=== PATIENT | male | born 1955 | race American Indian/Alaskan Native ===

== ENCOUNTER 2017-02-02 14:25 | Emergency (ER) | payer MEDICARE, OTHER ==
[2017-02-02 14:56] VITALS: BP 149/85
[2017-02-02 15:35] LABS: Hematocrit 46.2 % (35.5-45.6); Hemoglobin 15.2 gm/dl (11.8-15.2); Mean Corpuscular HGB Conc 33 % (32-34); Mean Corpuscular Hemoglobin 29 pg (28-32); Mean Corpuscular Volume 89 fl (84-94); Platelet Count 206 K/mm3 (140-440); Red Blood Count 5.22 M/mm3 (3.65-5.03); Red Cell Distribution Width 13.7 % (13.2-15.2)
[2017-02-02 15:37] LABS: White Blood Count 25.6 K/mm3 (4.5-11.0)
[2017-02-02 15:46] LABS: Anion Gap 21 mmol/L; Blood Urea Nitrogen 10 mg/dL (9-20); Carbon Dioxide 20 mmol/L (22-30); Chloride 93.1 mmol/L (98-107); Glucose 112 mg/dL (75-100); Potassium 3.6 mmol/L (3.6-5.0); Sodium 130 mmol/L (137-145)
[2017-02-02 16:17] LABS: Basophils % (Manual) 0 % (0.0-1.8); Blastocytes % (Manual) 0 %; Eosinophils % (Manual) 0 % (0.0-4.3)
[2017-02-02 16:18] LABS: Anisocytosis Few; Poikilocytosis Few
[2017-02-02 16:19] LABS: Diff Status Complete
[2017-02-02 17:45] LABS: Bacteria,Urine 1+ /HPF (Negative); Bilirubin,Urine NEG (Negative); Blood,Urine LG (Negative); Ketones,Urine TR mg/dL (Negative); Leukocyte Esterase,Urine MOD (Negative); Mucus,Urine 1+ /HPF; Nitrite,Urine POS (Negative); Urobilinogen,Urine < 2.0 mg/dL (<2.0)
[2017-02-02 17:48] LABS: Protein,Urine >500 mg/dL (Negative)
[2017-02-02] MEDS ORDERED: TYLENOL ONE (17:57)
--- NOTE | 2017-02-06 15:41 | ED Elopement Review ---
ED Pt Elopement review - Results review Lab results: Laboratory Tests 02/02/17 02/02/17 02/02/17 15:15 15:15 17:23 WBC 25.6 H RBC 5.22 H Hgb 15.2 Hct 46.2 H MCV 89 MCH 29 MCHC 33 RDW 13.7 Plt Count 206 Add Manual Diff Complete Total Counted 200 Seg Neuts % (Manual) 87.5 H Band Neutrophils % 0 Lymphocytes % (Manual) 2.5 L Reactive Lymphs % (Man) 0 Monocytes % (Manual) 10.0 H Eosinophils % (Manual) 0 Basophils % (Manual) 0 Metamyelocytes % 0 Myelocytes % 0 Promyelocytes % 0 Blast Cells % 0 Nucleated RBC % Not Reportable Seg Neutrophils # Man 22.4 H Band Neutrophils # 0.0 Lymphocytes # (Manual) 0.6 L Abs React Lymphs (Man) 0.0 Monocytes # (Manual) 2.6 H Eosinophils # (Manual) 0.0 Basophils # (Manual) 0.0 Metamyelocytes # 0.0 Myelocytes # 0.0 Promyelocytes # 0.0 Blast Cells # 0.0 WBC Morphology Not Reportable Hypersegmented Neuts Not Reportable Hyposegmented Neuts Not Reportable Hypogranular Neuts Not Reportable Smudge Cells Not Reportable Toxic Granulation Not Reportable Toxic Vacuolation Not Reportable Dohle Bodies Not Reportable Pelger-Huet Anomaly Not Reportable Shahbaz Rods Not Reportable Platelet Estimate Appears normal Clumped Platelets Not Reportable Plt Clumps, EDTA Not Reportable Large Platelets Not Reportable Giant Platelets Not Reportable Platelet Satelliting Not Reportable Plt Morphology Comment Not Reportable RBC Morphology Not Reportable Dimorphic RBCs Not Reportable Polychromasia Not Reportable Hypochromasia Not Reportable Poikilocytosis Few Anisocytosis Few Microcytosis Not Reportable Macrocytosis Not Reportable Spherocytes Not Reportable Pappenheimer Bodies Not Reportable Sickle Cells Not Reportable Target Cells Not Reportable Tear Drop Cells Not Reportable Ovalocytes Not Reportable Helmet Cells Not Reportable Ferrell-Fajardo Bodies Not Reportable Keller Rings Not Reportable Komal Cells Not Reportable Bite Cells Not Reportable Crenated Cell Not Reportable Elliptocytes Not Reportable Acanthocytes (Spur) Not Reportable Rouleaux Not Reportable Hemoglobin C Crystals Not Reportable Schistocytes Not Reportable Malaria parasites Not Reportable Lopez Bodies Not Reportable Hem Pathologist Commnt No Sodium 130 L Potassium 3.6 Chloride 93.1 L Carbon Dioxide 20 L Anion Gap 21 BUN 10 Creatinine 0.8 Estimated GFR > 60 BUN/Creatinine Ratio 12.50 Glucose 112 H Calcium 9.0 Troponin T < 0.010 Urine Color Yellow Urine Turbidity Slightly-cloudy Urine pH 5.0 Ur Specific Lafferty 1.015 Urine Protein >500 Urine Glucose (UA) Neg Urine Ketones Tr Urine Blood Lg Urine Nitrite Pos Urine Bilirubin Neg Urine Urobilinogen < 2.0 Ur Leukocyte Esterase Mod Urine WBC (Auto) 39.0 H Urine RBC (Auto) 1.0 U Epithel Cells (Auto) 1.0 Urine Bacteria (Auto) 1+ Urine Mucus 1+ 02/02/17 18:29 WBC RBC Hgb Hct MCV MCH MCHC RDW Plt Count Add Manual Diff Total Counted Seg Neuts % (Manual) Band Neutrophils % Lymphocytes % (Manual) Reactive Lymphs % (Man) Monocytes % (Manual) Eosinophils % (Manual) Basophils % (Manual) Metamyelocytes % Myelocytes % Promyelocytes % Blast Cells % Nucleated RBC % Seg Neutrophils # Man Band Neutrophils # Lymphocytes # (Manual) Abs React Lymphs (Man) Monocytes # (Manual) Eosinophils # (Manual) Basophils # (Manual) Metamyelocytes # Myelocytes # Promyelocytes # Blast Cells # WBC Morphology Hypersegmented Neuts Hyposegmented Neuts Hypogranular Neuts Smudge Cells Toxic Granulation Toxic Vacuolation Dohle Bodies Pelger-Huet Anomaly Shahbaz Rods Platelet Estimate Clumped Platelets Plt Clumps, EDTA Large Platelets Giant Platelets Platelet Satelliting Plt Morphology Comment RBC Morphology Dimorphic RBCs Polychromasia Hypochromasia Poikilocytosis Anisocytosis Microcytosis Macrocytosis Spherocytes Pappenheimer Bodies Sickle Cells Target Cells Tear Drop Cells Ovalocytes Helmet Cells Ferrell-Fajardo Bodies Keller Rings [place] Cells Bite Cells Crenated Cell Elliptocytes Acanthocytes (Spur) Rouleaux Hemoglobin C Crystals Schistocytes Malaria parasites Lopez Bodies Hem Pathologist Commnt Sodium Potassium Chloride Carbon Dioxide Anion Gap BUN Creatinine Estimated GFR BUN/Creatinine Ratio Glucose Calcium Troponin T < 0.010 Urine Color Urine Turbidity Urine pH Ur Specific Lafferty Urine Protein Urine Glucose (UA) Urine Ketones Urine Blood Urine Nitrite Urine Bilirubin Urine Urobilinogen Ur Leukocyte Esterase Urine WBC (Auto) Urine RBC (Auto) U Epithel Cells (Auto) Urine Bacteria (Auto) Urine Mucus - Call Back decision Pt Call Back Decision: Pt to F/U with PMD (UTI, Macrobid rx to be called in)
== END 2017-02-02 23:05 | disposition left against medical advice (07) ==
LOC: ED 14:25
DX: R50.9 Fever, unspecified (principal); R53.1 Weakness; R07.9 Chest pain, unspecified; Z53.21 Procedure and treatment not carried out due to patient leaving prior to being seen by health care provider
CPT/HCPCS: 36415; 80048; 81001; 84484; 85007; 85025; 87076; 87086; 87186; 93005; 93010